=== PATIENT | male | born 1995 | race Caucasian/White ===

== ENCOUNTER 2023-10-14 20:20 | Emergency (ER) | payer BC, OTHER ==
[2023-10-14] MEDS: Acetaminophen 500 MG Tab PO ONE (20:59)
== END 2023-10-14 22:16 | disposition home or self-care (01) ==
LOC: MW.ED 20:20
DX: S06.0X0A Concussion without loss of consciousness, initial encounter (principal); Z75.8 Other problems related to medical facilities and other health care; V89.2XXA Person injured in unspecified motor-vehicle accident, traffic, initial encounter
CPT/HCPCS: 70450; 99283; A9270